=== PATIENT | male | born 1965 | race Two or more races ===

== ENCOUNTER 2023-09-18 12:01 | Inpatient (IN) | payer OTHER ==
[~2023-09-18] VITALS: Ht 193 cm; Wt 111.1 kg
[2023-09-18] MEDS ORDERED: PLAVIX75 MG (12:35)
[2023-09-18] MEDS ORDERED: ADULT LOW DOSE81 M1 (12:35)
[2023-09-18] MEDS ORDERED: METFORMIN HCL1000 MG (12:35)
[2023-09-18] MEDS ORDERED: NEURONTIN300 MG (12:36)
[2023-09-18] MEDS ORDERED: NITROGLYCERIN IN 5 % DEXTROSE 50 MG/250 ML BOTTLE IV STA (14:14)
[2023-09-18 14:41] LABS: URINE APPEARANCE Clear; URINE BILIRRUBIN Negative (NEGATIVE); URINE BLOOD Negative; URINE COLOR Yellow; URINE GLUCOSE Negative (NEGATIVE); URINE LEUKOCYTE Negative; URINE NITRATE Negative; URINE PROTEIN Negative (NEGATIVE); URINE UROBILINOGEN 0.2 E.U./dl
[2023-09-18 14:45] LABS: URINE BACTERIA 16.3 uL (0.0-1933); URINE EPITHELIAL CELLS 10.6 uL (0.0-38.8); URINE RBC 7.4 uL (0.0-20.8)
[2023-09-18 15:20] LABS: HEMATOCRIT 40.5 % (39.0-48.0); HEMOGLOBIN 13.9 g/dL (13-16.00); MEAN CELL VOLUME 84.5 fL (80.0-100.00); MEAN CORPUSCULAR HEMOGLOBIN 28.9 pg (27.00-32.0); MEAN CORPUSCULAR HGB CONC 34.3 g/dl (32.0-36.0); PLATELET COUNT 176 K/uL (150-450); RED BLOOD COUNT 4.79 M/uL (4.00-6.00); RED CELL DISTRIBUTION WIDTH 14.1 % (11.5-14.5)
[2023-09-18 15:46] LABS: ALBUMIN 3.6 gm/dL (3.4-5.0); ALKALINE PHOSPHATASE 105 U/L (50-136); ALT/SGPT 21 U/L (12-78); AMYLASE 86 U/L (25-115); ANION GAP 3 (10.0-20.0); AST/SGOT 14 U/L (15-37); BILIRUBIN,CONJUGATED < 0.10 mg/dL (0.0-0.2); BLOOD UREA NITROGEN 13 mg/dL (7-18); BUN CREA RATIO 17 (7.0-25.0); CALCIUM 9.2 mg/dL (8.5-10.1); CARBON DIOXIDE 32 mEq/L (21-32); CHLORIDE 107 mmol/L (98-107); CREATININE SERUM 0.75 mg/dL (0.70-1.30); GFR 106.59; GLUCOSE FASTING 62 mg/dL (65-100); OSMOLALITY SERUM 274 MOSM/KG (275-295); POTASSIUM 4.07 mEq/L (3.5-5.1); SODIUM 138 mmol/L (136-145); TOTAL PROTEIN 7.9 gm/dL (6.4-8.2)
[2023-09-18] MEDS ORDERED: TICAGRELOR 90 MG TABLET PO STA (16:58)
[2023-09-18] MEDS ORDERED: ASPIRIN 325 MG TABLET PO STA (16:58)
[2023-09-19] MEDS ORDERED: ATORVASTATIN CALCIUM 40 MG TABLET PO SCH ×2 (00:14→20:00)
[2023-09-19] MEDS ORDERED: ACETAMINOPHEN 500 MG GEL..CAP PO PRN (00:15)
[2023-09-19] MEDS ORDERED: 0.9 % SODIUM CHLORIDE 1,000 ML IV SCH (00:15)
[2023-09-19] MEDS ORDERED: NITROGLYCERIN IN 5 % DEXTROSE 250 ML IV SCH ×2 (00:19→07:00)
[2023-09-19] MEDS ORDERED: DEXTROSE 50 % IN WATER 0.5 G/ML DISP.SYRIN IV PRN (00:30)
[2023-09-19] MEDS ORDERED: INSULIN LISPRO 1,000 UNIT/10 ML UNITS SUBCUTANEO PRN (00:30)
[2023-09-19] MEDS ORDERED: ONDANSETRON HCL 4 MG in 0.9 % SODIUM CHLORIDE 50 ML IV PRN (00:30)
[2023-09-19 01:41] LABS: INR 1.04; PARTIAL THROMBOPLASTIN TIME 27.1 SECONDS (22.0-34.0); PROTHROMBIN TIME 10.9 SECONDS (9.0-11.5)
[2023-09-19 01:45] LABS: CHOL HDL RATIO 4.1 (0-5.0)
[2023-09-19] MEDS ORDERED: ISOSORBIDE MONONITRATE 30 MG TABLET PO SCH (09:00)
[2023-09-19] MEDS ORDERED: FAMOTIDINE/PF 20 MG in 0.9 % SODIUM CHLORIDE 8 ML IV PUSH SCH (09:00)
[2023-09-19] MEDS ORDERED: TICAGRELOR 90 MG TABLET PO SCH (09:00)
[2023-09-19] MEDS ORDERED: ASPIRIN 81 MG TAB.CHEW PO SCH (09:00)
[2023-09-19] MEDS ORDERED: ENOXAPARIN SODIUM 40 MG/0.4 ML SYRINGE SUBCUTANEO SCH (09:00)
[2023-09-19] MEDS ORDERED: METOPROLOL SUCCINATE 25 MG TAB.SR.24H PO SCH (09:00)
[2023-09-19] MEDS ORDERED: LOSARTAN POTASSIUM 25 MG TABLET PO SCH (09:00)
[2023-09-20] MEDS ORDERED: FAMOTIDINE/PF 20 MG/2 ML VIAL ONE (08:05)
[2023-09-20] MEDS ORDERED: ATORVASTATIN CALCIUM 40 MG TABLET PO SCH (09:00)
[2023-09-21] MEDS ORDERED: FAMOTIDINE/PF 20 MG/2 ML VIAL ONE (08:36)
== END 2023-09-21 09:45 | disposition designated cancer center or children's hospital (05) | DRG 282 ==
LOC: ER 12:02 → ICU-2 09-19 00:19 → ICU 09-20 01:45
PROVIDERS: General Practice; ADMIT Internal Medicine; ATTEND Internal Medicine
PROC: B24BZZZ Ultrasonography of Heart with Aorta (ICD-10-PCS; principal; 2023-09-19)
PROC: BW21YZZ Computerized Tomography (CT Scan) of Abdomen and Pelvis using Other Contrast (ICD-10-PCS; 2023-09-20)
DX: I21.4 Non-ST elevation (NSTEMI) myocardial infarction (principal); I24.9 Acute ischemic heart disease, unspecified; I25.10 Atherosclerotic heart disease of native coronary artery without angina pectoris; I11.9 Hypertensive heart disease without heart failure; E78.5 Hyperlipidemia, unspecified; E11.8 Type 2 diabetes mellitus with unspecified complications; Z79.4 Long term (current) use of insulin; Z20.822 Contact with and (suspected) exposure to COVID-19